=== PATIENT | female | born 1985 | race Two or more races ===

== ENCOUNTER 2023-12-05 00:13 | Emergency (ER) | payer OTHER ==
[~2023-12-05] VITALS: Ht 160 cm; Wt 88.9 kg
[2023-12-05] MEDS: IV NORMAL SALINE 1000 ML BAG IV ONE (00:52)
[2023-12-05] MEDS ORDERED: diphenhydrAMINE 50 MG/1 ML VIAL ONE ×2 (00:56→02:25)
[2023-12-05] MEDS ORDERED: CLONIDINE HCL 0.1 MG TABLET ONE (00:56)
[2023-12-05] MEDS ORDERED: LORAZEPAM 2 MG/1 ML VIAL ONE (00:57)
[2023-12-05] MEDS: LORAZEPAM 2 MG/1 ML VIAL IV ONE (00:59)
[2023-12-05] MEDS: diphenhydrAMINE 50 MG/1 ML VIAL IV ONE ×2 (00:59→02:25)
[2023-12-05] MEDS: CLONIDINE HCL 0.1 MG TABLET PO ONE (01:14)
[2023-12-05 01:37] LABS: BASOPHILS # (AUTO) 0.1 K/UL (0.0-0.2); EOSINOPHILS # (AUTO) 0.1 K/uL (0.0-0.7); EOSINOPHILS % (AUTO) 0.6 % (0.0-7.0); HEMATOCRIT 46.3 % (31.2-41.9); HEMOGLOBIN 15.4 g/dL (10.9-14.3); LYMPHOCYTES # (AUTO) 1.5 K/uL (0.8-4.8); LYMPHOCYTES % (AUTO) 14.9 % (20.5-51.5); MEAN CORPUSCULAR HEMOGLOBIN 28.2 uug (24.7-32.8); MEAN CORPUSCULAR HGB CONC 33 g/dL (32.3-35.6); MEAN CORPUSCULAR VOLUME 85.1 fL (75.5-95.3); MONOCYTES # (AUTO) 0.5 K/uL (0.1-1.30); MONOCYTES % (AUTO) 4.6 % (0.0-11.0); NEUTROPHILS % (AUTO) 78.9 % (38.5-71.5); PLATELET COUNT (AUTO) 427 K/uL (179-408); RED BLOOD CELL COUNT(AUTO) 5.44 MIL/uL (3.63-4.92); RED CELL DISTRIBUTION WIDTH 12.1 % (12.3-17.7); WHITE BLOOD COUNT (AUTO) 10.1 K/uL (3.8-11.8)
[2023-12-05 01:46] LABS: CARBON DIOXIDE 27 mmol/L (21-32); CHLORIDE 98 mmol/L (98-107); CREATININE 1.3 mg/dL (0.6-1.3); GLUCOSE 100 mg/dL (74-106); POTASSIUM 3.9 mmol/L (3.5-5.1); SODIUM SERUM 136 mmol/L (136-145); UREA NITROGEN, BLOOD 22 mg/dL (7-18)
[2023-12-05 01:48] LABS: DIFFERENTIAL COMMENT 1
[2023-12-05 01:55] LABS: ALANINE AMINOTRANSFERASE 98 U/L (14-59); ALBUMIN 4.3 g/dL (3.4-5.0); ALKALINE PHOSPHATASE 146 U/L (50-136); ASPARTATE AMINOTRANSFERASE 34 U/L (15-37); BILIRUBIN,DIRECT 0.2 mg/dL (0.0-0.2); CALCIUM 9.5 mg/dL (8.5-10.1); TOTAL PROTEIN, SERUM 8.3 g/dL (6.4-8.2)
[2023-12-05] MEDS: IV D5 1/2 NS 1000 ML 1,000 ML IV ONE (02:34)
[2023-12-05] MEDS ORDERED: DIPH25CA83 PO (02:55)
[2023-12-05] MEDS ORDERED: CLON0.1T PO (02:55)
[2023-12-05] MEDS ORDERED: OLAN5TAB3 PO (07:46)
[2023-12-05] MEDS ORDERED: ESCI10TA PO (07:46)
[2023-12-05] MEDS ORDERED: IBUP-1955 PO (07:46)
[2023-12-05 08:55] VITALS: BP 129/87; TEMP 98.3; O2SAT 100
== END 2023-12-05 08:30 | disposition home or self-care (01) ==
LOC: ER 00:19
DX: F11.23 Opioid dependence with withdrawal (principal); Z79.1 Long term (current) use of non-steroidal anti-inflammatories (NSAID); Z79.899 Other long term (current) drug therapy
CPT/HCPCS: 99285; 96374; 96361 ×2; 96375; 80076; 80048; 85025; 84484; 36415; 93005 ×2; 96376; J1200 ×2; J2060; J7040; A4606; A4663